=== PATIENT | male | born 1980 | race Caucasian/White ===

== ENCOUNTER 2019-05-18 05:32 | Emergency (ER) | payer SELFPAY ==
[2019-05-18 05:35] VITALS: BP 115/87
--- NOTE | 2019-05-18 05:41 | ER Report ---
History and Physical Time Seen By MD: 05:37 Hx. of Stated Complaint: foot slipped on stairs. landed on tail bone. caught himself before going down the stairs all the way HPI/ROS CHIEF COMPLAINT: tailbone pain after fall. HISTORY OF PRESENT ILLNESS: This is a 39 year old male. His foot slipped on the stairs. Landed on tailbone, with tailbone pain. No other injury. Cannot sit down, severe pain. Allergies: Coded Allergies: No Known Drug Allergies (Unverified , 05/18/19) Home Meds Active Scripts Hydrocodone Bit/Acetaminophen (HYDROCODON-ACETAMINOPHEN 5-325) 1 Each Tablet, 1 EACH PO Q4H PRN for PAIN, #6 TAB 0 Refills Prov:CLARITA SOLIS MD 05/18/19 Old Medical Records Reviewed: Yes Constitutional Vital Sign - Last 24 Hours 05/18/19 05:35 Temp 98.2 Pulse 75 Resp 16 B/P (MAP) 115/87 Pulse Ox 93 O2 Delivery Room Air Physical Exam General: Alert, no distress. Not able to sit because of pain. Musculoskeletal: Pain over tailbone, but no pain in rest of spine with palpation. Extremities with normal range of motion. Neuro: Normal. Medical Decision Making EKG/Imaging Imaging SACRUM & COCCYX HISTORY: Fell on stairs. Tailbone pain. COMPARISON: None. TECHNIQUE: AP and lateral views of the sacrum and coccyx. FINDINGS: There is no fracture or dislocation. The sacroiliac joints are patent without widening. There is no pubic diastases. IMPRESSION: 1. No acute osseous abnormality of the sacrum or coccyx. Report Dictated By: Lucille León at 05/18/2019 6:14 AM ED Course/Re-evaluation ED Course Coccyx/sacrum x-ray negative. See instructions. Decision to Disposition Date: May 18, 2019 Decision to Disposition Time: 06:55 Depart Departure Latest Vital Signs Vital Signs Date Time Temp Pulse Resp B/P (MAP) Pulse Ox O2 Delivery O2 Flow Rate FiO2 05/18/19 05:35 98.2 75 16 115/87 93 Room Air Impression: Primary Impression: Coccyx contusion Condition: Improved Disposition: HOME OR SELF-CARE New Scripts Hydrocodone Bit/Acetaminophen (HYDROCODON-ACETAMINOPHEN 5-325) 1 Each Tablet 1 EACH PO Q4H PRN for PAIN, #6 TAB 0 Refills Prov: CLARITA SOLIS MD 05/18/19 Patient Instructions: Coccyx Injury (ED) Additional Instructions: Offload with a donut pillow or towels/cushions. Take Ibuprofen 200mg over the counter tablets, take 4 tablets every 8 hours as needed for pain. Take Lortab 5/325, one every 4 hours as needed for pain. Off work today. Problem Qualifiers Primary Impression: Coccyx contusion Encounter type: initial encounter Qualified Codes: S30.0XXA - Contusion of lower back and pelvis, initial encounter CLARITA SOLIS MD May 18, 2019 05:41
--- NOTE | 2019-05-18 06:22 | RADIOLOGY IMAGING REPORT ---
FACILITY: [facility] - [place] PATIENT NAME: Govind Ramos : 1980 MR: [id number] V: [id number] EXAM DATE: ORDERING PHYSICIAN: CLARITA SOLIS TECHNOLOGIST: Location: [facility] - [place] Patient: Govind Ramos : 1980 Visit/Account:[id number] Date of Sevice: 05/18/2019 SACRUM & COCCYX HISTORY: Fell on stairs. Tailbone pain. COMPARISON: None. TECHNIQUE: AP and lateral views of the sacrum and coccyx. FINDINGS: There is no fracture or dislocation. The sacroiliac joints are patent without widening. The re is no pubic diastases. IMPRESSION: 1. No acute osseous abnormality of the sacrum or coccyx. Report Dictated By: Lucille León at 05/18/2019 6:14 AM Report E-Signed By: Lucille León at 05/18/2019 6:15 AM WSN:[id number]
[2019-05-18] MEDS ORDERED: APAP/HYDROCODONE 325/5 TAB PO ONE (07:10)
[2019-05-18] MEDS ORDERED: ACET/HYDROC 5/325MG TH ER ONLY 2 TAB/BOTTLE PO ONE (07:10)
[2019-05-18] MEDS ORDERED: LOR5/325 PO (07:12)
== END 2019-05-18 07:28 | disposition home or self-care (01) ==
LOC: ER 06:15
DX: S30.0XXA Contusion of lower back and pelvis, initial encounter (principal)
CPT/HCPCS: 72220; 99283